=== PATIENT | female | born 1975 | race Caucasian/White ===

== ENCOUNTER 2017-11-27 10:09 | Outpatient (CLI) | payer OTHER | END 2017-11-27 10:20 | disposition home or self-care (01) | LOC: NUCLEAR 10:09 | DX: R10.9 Unspecified abdominal pain (principal); J30.89 Other allergic rhinitis; E66.3 Overweight; J45.909 Unspecified asthma, uncomplicated | CPT/HCPCS: A9537; 78227 ==